=== PATIENT | female | born 1945 | race Caucasian/White ===

== ENCOUNTER 2025-03-15 15:46 | Inpatient (IN) ==
[2025-03-15 16:19] LABS: IMMATURE GRANULOCYTE # (AUTO) 0.1 (0.0-1.0); IMMATURE GRANULOCYTE % (AUTO) 0.4 % (0.0-5.0); RDW COEFFICIENT OF VARIATION 13.3 % (11.6-14.8)
[2025-03-15 16:33] LABS: CREATININE 0.81 mg/dL (0.60-1.30)
[2025-03-15 17:00] LABS: SARS COV-2 RNA RAPID NAAT NEGATIVE (NEGATIVE)
[2025-03-15 17:06] LABS: MOLECULAR FLU A NEGATIVE BY NAAT (NEGATIVE); MOLECULAR FLU B NEGATIVE BY NAAT (NEGATIVE); RSV MOLECULAR NEGATIVE BY NAAT (NEGATIVE)
--- NOTE | 2025-03-15 18:28 | DI ---
EXAM: CHEST RADIOGRAPH TECHNIQUE: Single frontal chest radiograph. HISTORY: Chest pain and shortness of breath. COMPARISON: 09/04/2024. FINDINGS: The lungs are clear. The heart is enlarged. There is calcification in the aorta consistent with atherosclerosis. There is no pleural effusion. There is no pneumothorax. IMPRESSION: 1. Cardiomegaly and atherosclerosis. 2. Otherwise unremarkable chest radiograph.
[2025-03-15 18:52] LABS: INR 2.53 SI (0.0-3.9)
[2025-03-15] MEDS ORDERED: DUONEB NEB PRN (19:25)
--- NOTE | 2025-03-15 19:30 | ED.PDOC ---
General HPI ED Provider: Dr. DARRICK XIONG DO Chief Complaint: Shortness of Air Stated Complaint: 80-year-old female brought by EMS from local skilled nursing. Called for concern for shortness of breath as the patient had audible breath sounds and hypoxic. EMS reports that upon their arrival they noted that her nasal cannula was hooked up to the humidifying bubbler as she is on oxygen therapy at nighttime, but the oxygen bubbler was not hooked up to the oxygen source on the wall. Upon hooking this back up, her oxygen levels stabilized. Upon arrival, the patient is unable to provide history due to history of dementia. Advanced directives include DNR with limited interventions. See advance directive sheet. Time Seen by Provider: 03/15/25 16:03 Information Source: Family, [facility] and EMT Nursing and Triage Documentation Reviewed and Agree: Yes Opioid Naive vs. Tolerant What is Opioid Naive?: *Opioid Naive implies the patient is not already taking opioids or not chronically receiving opioids on a daily basis. *PRN dosing is not "usually" associated with tolerance. *Patients are at higher risk of over-sedation and aspiration. What is Opioid Tolerant?: *Opioid Tolerance implies less than the expected response to an opioid. *Acquired tolerance is defined by the patient taking 60mg of oral morphine daily (or equianalgesic dose of another opioid) for 1 week or more. *Often associated with chronic pain. *May take more than usual dose to achieve desired pain control. Review of Systems Review Of Systems Constitutional: Reports No symptoms All Other Systems: Reviewed and Negative (With family and skilled nursing records) Physical Exam Physical Exam Appearance: Reports Well-appearing, No pain distress and Well-nourished Eyes: Reports EMILY and EOMI ENT: Reports Oropharynx normal Neck: Supple Respiratory: Reports Airway patent, Breath sounds clear, Breath sounds equal, Breath sounds diminished and Respirations nonlabored Cardiovascular: Reports RRR and Pulses normal GI/: Reports Soft and Nontender Musculoskeletal: Reports Normal strength and ROM intact Skin: Reports Warm, Dry and Normal color Neurological: Reports Sensation intact, Motor intact and Alert; Denies Oriented Psychiatric: Reports Affect appropriate and Mood appropriate Interpretation Radiology Interpretation Radiology Interpretation By: Radiologist Radiology Results: No acute changes Exam Interpreted: Portable CXR Re-Evaluation Re-Evaluation Additional Comments: 80-year-old female brought from the skilled nursing for evaluation of shortness of breath. She is stable on her prescribed oxygen for nighttime, and lungs clear to auscultation, but given her multiple comorbidities and limited history, laboratory workup obtained. This demonstrated pertinence particularly with regard to the elevated BNP although there is none to compare to. Although the patient appears stable on her supplemental oxygen in addition to chest x-ray that does not appear fluid overloaded, given limited history from the patient for subjective symptoms as well as the concern for proper use of oxygen supplementation at the nursing facility as it may not have been hooked up which would be highly dangerous to this patient, I discussed with the hospitalist service who is gracious to observe the patient during hospitalization. Physician Progress Note Physician Progress Note: All EKGs and plain film imaging independently reviewed and interpreted by me unless stated otherwise. CTs interpreted by radiology unless otherwise stated. All pediatric patients are accompanied by parent or legal guardian as primary historian and/or validate patient report unless otherwise stated. Course Course 03/15/25 16:13 03/15/25 16:13 Orders, Labs, Meds: Lab Review 03/15/25 03/15/25 16:13 16:15 WBC 14.09 H RBC 4.05 L Hgb 12.7 Hct 42.4 MCV 104.7 H MCH 31.4 H MCHC 30.0 L RDW Coeff of Lucy 13.3 Plt Count 135 L Immature Gran % (Auto) 0.4 Neut % (Auto) 80.1 H Lymph % (Auto) 8.4 L [place] % (Auto) 10.4 H Eos % (Auto) 0.6 Baso % (Auto) 0.1 Neut # (Auto) 11.3 H Lymph # (Auto) 1.2 [place] # (Auto) 1.5 Eos # (Auto) 0.1 Baso # (Auto) 0.0 Immature Gran # (Auto) 0.1 PT 24.7 H INR 2.53 APTT 34.1 Sodium 136.2 Potassium 3.84 Chloride 102.0 Carbon Dioxide 31.5 H Anion Gap 6.54 BUN 27.3 H Creatinine 0.81 Estimated GFR (MDRD) 68.00 BUN/Creatinine Ratio 33.70 Glucose 104.2 Calcium 8.23 L Magnesium 1.86 Total Bilirubin 1.17 AST 16.5 ALT 15.8 Alkaline Phosphatase 179.4 H Troponin I < 0.012 NT-Pro-B Natriuret Pep 38041 H Total Protein 7.08 Albumin 3.58 Globulin 3.50 Albumin/Globulin Ratio 1.02 Influ A Molecular Assay Negative by naat Influ B Molecular Assay Negative by naat RSV Antigen Negative by naat SARS CoV-2 RNA Rapid KATRIN Negative Orders Category Date Time Status ADMIT OBSERVATION [PLACE PATIENT OBSERVATION] .TO ADMISSION 03/15/25 19:23 Active MEDSURG (MONITORED BED) EKG-(ED & IP/OBS ONLY) Stat CARDIO 03/15/25 16:03 Completed NEBULIZER TREATMENT Routine CARDIO 03/15/25 19:27 Ordered OXYGEN Routine CARDIO 03/15/25 19:26 Ordered ACTIVITY .Early Mobilization for VTE Prevention CARE 03/15/25 19:25 Active INTAKE & OUTPUT Q8HR CARE 03/15/25 19:25 Active TELEMETRY MONITORING TELE CARE 03/15/25 19:23 Active VITAL SIGNS Q4HR CARE 03/15/25 19:26 Active WEIGH PATIENT 0600 CARE 03/15/25 19:25 Active CARDIAC DIET DIETARY 03/16/25 Breakfast Ordered FLUID RESTRICTION 1800 ML DIETARY 03/16/25 Breakfast Ordered CBC W/ AUTO DIFF DAILY@0600 LAB 03/16/25 06:00 Ordered CBC W/ AUTO DIFF DAILY@0600 LAB 03/17/25 06:00 Ordered CBC W/ AUTO DIFF Stat LAB 03/15/25 16:13 Completed CMP [COMPREHENSIVE METABOLIC PANEL] Stat LAB 03/15/25 16:13 Completed COMPREHENSIVE METABOLIC PANEL DAILY@0600 LAB 03/16/25 06:00 Ordered COMPREHENSIVE METABOLIC PANEL DAILY@0600 LAB 03/17/25 06:00 Ordered COVID [SARS COV-2 RNA RAPID KATRIN] Stat LAB 03/15/25 16:15 Completed ED PROBNP [NT-PROBNP(ED)] Stat LAB 03/15/25 16:13 Completed FLU A & B MOLECULAR [FLU A/B MOLECULAR] Stat LAB 03/15/25 16:15 Completed MAGNESIUM Stat LAB 03/15/25 16:13 Completed PT WITH INR Stat LAB 03/15/25 16:13 Completed PTT [PARTIAL THROMBOPLASTIN TIME] Stat LAB 03/15/25 16:13 Completed RESPIRATORY PANEL 2.1 (PCR) ONCE LAB 03/15/25 19:36 Uncollected RSV Stat LAB 03/15/25 16:15 Completed TROPONIN I Stat LAB 03/15/25 16:13 Completed Acetaminophen [Tylenol] Meds 03/15/25 19:25 Active 650 mg PO Q4H PRN Cefepime 2 gm/D5w [Maxipime 2 gm/50 ml D5w] Meds 03/15/25 19:24 Discontinued 2 gm in 50 ml IV ONCE Furosemide [Lasix] Meds 03/15/25 20:00 Active 20 mg IVP Q8H Ipratropium/Albuterol Neb [Duoneb] Meds 03/15/25 19:25 Active 3 ml NEB RTQ4H PRN CHEST, 1V AP ONLY Stat RADS 03/15/25 16:03 Completed Medications Generic Name Dose Route Start Last Admin Trade Name Freq PRN Reason Stop Dose Admin Acetaminophen 650 mg 03/15/25 19:25 Acetaminophen 325 Mg Tablet PO Q4H PRN Mild Pain Albuterol/Ipratropium 3 ml 03/15/25 19:25 Ipratropium/Albuterol Vial.Neb NEB RTQ4H PRN Wheezing Furosemide 20 mg 03/15/25 20:00 Furosemide Inj 20 Mg/2 Ml Vial IVP Q8H STALIN Discontinued Medications Generic Name Dose Route Start Last Admin Trade Name Freq PRN Reason Stop Dose Admin CEFEPIME 2 GM/D5W 2 gm in 50 mls @ 100 mls/hr 03/15/25 19:24 03/15/25 20:06 Maxipime 2 Gm/50 Ml D5w IV 03/15/25 19:53 100 mls/hr ONCE ONE Administration Vital Signs: Temp Pulse Resp BP Pulse Ox 03/15/25 15:50 97.7 F 85 20 124/72 91 L Discharge Plan Discharge Patient Disposition: PLACED OBSERVATION Discharge Problem: Hypoxia, Pneumonia, Chronic respiratory failure, CHF (congestive heart failure) Did you review [place] CHILD CARE C[place] for ALL controlled substances?: Not Applicable ED Provider: DARRICK XIONG Condition: Stable
[2025-03-15] MEDS: MAXIPIME 2 GM/50 ML D5W 2 GM/50 ML BAG IV ONE (20:06)
[2025-03-15 21:43] VITALS: BMI 31.1
[2025-03-15 22:07] LABS: BORDETELLA PARAPERTUSSIS (PCR) NOT DETECTED (NOT DETECT); BORDETELLA PERTUSSIS (PCR) NOT DETECTED (NOT DETECT); CHLAMYDIA PNEUMONIAE (PCR) NOT DETECTED (NOT DETECT); CORONAVIRUS 229E (PCR) NOT DETECTED (NOT DETECT); CORONAVIRUS HKU1 (PCR) NOT DETECTED (NOT DETECT); CORONAVIRUS NL63 (PCR) NOT DETECTED (NOT DETECT); CORONAVIRUS OC43 (PCR) NOT DETECTED (NOT DETECT); HUMAN METAPNEUMOVIRUS (PCR) NOT DETECTED (NOT DETECT); INFLUENZA A H1 (PCR) NOT DETECTED (NOT DETECT); INFLUENZA A H1-2009 (PCR) NOT DETECTED (NOT DETECT); INFLUENZA A H3 (PCR) NOT DETECTED (NOT DETECT); INFLUENZA B (PCR) NOT DETECTED (NOT DETECT); MYCOPLASMA PNEUMONIAE (PCR) NOT DETECTED (NOT DETECT); PARAINFLUENZA VIRUS 1 (PCR) NOT DETECTED (NOT DETECT); PARAINFLUENZA VIRUS 2 (PCR) NOT DETECTED (NOT DETECT); PARAINFLUENZA VIRUS 3 (PCR) NOT DETECTED (NOT DETECT); PARAINFLUENZA VIRUS 4 (PCR) NOT DETECTED (NOT DETECT); RESPIRATORY SYNCYTIAL V (PCR) NOT DETECTED (NOT DETECT); SARS_COV_2 (PCR) NOT DETECTED (NOT DETECT)
[2025-03-15] MEDS: COGENTIN PO SCH (22:15)
[2025-03-15] MEDS: RISPERDAL PO SCH (22:15)
[2025-03-15] MEDS: COREG PO SCH (22:15)
[2025-03-15] MEDS: COUMADIN PO SCH (22:16)
[2025-03-15] MEDS: LASIX IVP SCH (22:16)
[2025-03-15] MEDS: XALATAN RIGHTEYE SCH (22:17)
[2025-03-15 22:56] LABS: ADENOVIRUS (PCR) NOT DETECTED (NOT DETECT); HUMAN RHINOVIRUS/ENTEROV (PCR) DETECTED (NOT DETECT)
[2025-03-16 05:06] LABS: IMMATURE GRANULOCYTE # (AUTO) 0.0 (0.0-1.0); IMMATURE GRANULOCYTE % (AUTO) 0.4 % (0.0-5.0); RDW COEFFICIENT OF VARIATION 13.5 % (11.6-14.8)
[2025-03-16 05:26] LABS: CREATININE 0.73 mg/dL (0.60-1.30)
[2025-03-16] MEDS ORDERED: DUONEB NEB PRN ×2 (05:58→06:03)
[2025-03-16] MEDS: ZYRTEC PO SCH (08:20)
[2025-03-16] MEDS: K-DUR PO SCH (08:21)
--- NOTE | 2025-03-16 09:21 | PCM ---
Date of Service Date Seen by Provider: 03/16/25 Time Seen by Provider: 08:30 Admit Day/Time Admission Date: 03/15/25 Reason for Admission Chief Complaint: CHF. CHRONIC RESP FAILURE ; R/O PNA Hospital Provider Hospital Provider: CHEYENNE NEGRON, [facility] History of Present Illness History of Present Illness: 80 yo female with pmh of afib, systolic HF, schizophrenia, and COPD on PRN O2 presented to the ER from [facility] for low O2 sat after finding the patient's oxygen to be disconnected. O2 sat was found to be in the 80s. Placed back on 2L and was sating in upper 90s per EMS. Per nursing staff, patient had been lethargic and not acting right over the last couple days. She was treated for an URI and was not improving. Chest xray completed and negative at the facility. She was prescribed cefdinir that she had not started prednisone. Covid and flu negative in ER. Chest x-ray showing cardiomegaly. White count mildly elevated with slight left shift. No reported fever from SNF but did have cough. BNP found to be >10,000 with crackles to auscultation of the lungs present per ER provider and pitting edema to BLE. She was given IV cefepime. Admitted to med/surg observation. Patient is oriented to person only at baseline. Unable to provide HPI. Daughter at bedside states she has known CHF but unknown when she has ever had an echocardiogram done but knows she takes lasix. Case Discussed With Case Discussed With: Patient's case was discussed with the ER Physicians, Dr. Ortiz. 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 - Rheumatic tricuspid insufficiency (ICD-10) COPD (chronic obstructive pulmonary disease) J44.9 - Chronic obstructive pulmonary disease, unspecified (ICD-10) Atrial fibrillation I48.91 - Unspecified atrial fibrillation (ICD-10) Systolic heart failure I50.20 - Unspecified systolic (congestive) heart failure (ICD-10) Allergies Allergies Allergy/AdvReac Type Severity Reaction Status Date / Time No Known Allergies Allergy Unverified 03/15/25 20:36 Current Medications Home Medications Acetaminophen (Acetaminophen 325 Mg Tablet) 650 mg PO Q4H PRN PRN Reason: Mild Pain Albuterol/Ipratropium (Ipratropium/Albuterol Vial.Neb) 3 ml NEB RTQ4H PRN PRN Reason: Wheezing Albuterol/Ipratropium (Ipratropium/Albuterol Vial.Neb) 3 ml NEB RTQ4H PRN PRN Reason: Wheezing Benztropine Mesylate (Benztropine Mesylate 1 Mg Tablet) 1 mg PO 2XD [facility] Last Admin: 03/16/25 08:22 Dose: 1 mg Carvedilol (Carvedilol 3.125 Mg Tablet) 3.125 mg PO 2XD [facility] Last Admin: 03/16/25 08:22 Dose: 3.125 mg Cetirizine HCl (Cetirizine Hcl 10 Mg Tablet) 10 mg PO DAILY [facility] Last Admin: 03/16/25 08:20 Dose: 10 mg Furosemide (Furosemide Inj 20 Mg/2 Ml Vial) 20 mg IVP Q8H [facility] Last Admin: 03/16/25 04:34 Dose: 20 mg Latanoprost (Latanoprost 2.5 Ml Opth Darlin) 1 drop RIGHTEYE QPM [facility] Last Admin: 03/15/25 22:17 Dose: 1 drop Potassium Chloride (Potassium Chloride 20 Meq Tab) 10 meq PO DAILYWM2 [facility] Last Admin: 03/16/25 08:21 Dose: 10 meq Risperidone (Risperidone 1 Mg Tablet) 1 mg PO 2XD [facility] Last Admin: 03/16/25 08:21 Dose: 1 mg Warfarin Sodium (Warfarin Sodium 2 Mg Tablet) 2 mg PO MoWeFr@1700 [facility] Last Admin: 03/15/25 22:16 Dose: 2 mg Warfarin Sodium (Warfarin Sodium 2.5 Mg Tablet) 2.5 mg PO SuTuThSa@1700 [facility] acetaminophen 325 mg capsule 650 mg PO BID 03/15/25 [History Confirmed 03/15/25] azithromycin 250 mg tablet 250 mg PO DIRECTED 03/15/25 [History Confirmed 03/15/25] benztropine 1 mg tablet 1 mg PO 2XD 03/15/25 [History Confirmed 03/15/25] carvedilol 3.125 mg tablet 3.125 mg PO 2XD 03/15/25 [History Confirmed 03/15/25] cefdinir 300 mg capsule 300 mg PO 2XD 03/15/25 [History Confirmed 03/15/25] cetirizine 10 mg tablet 10 mg PO DAILY 03/15/25 [History Confirmed 03/15/25] cyanocobalamin (vitamin B-12) 1,000 mcg/mL injection solution 1,000 mcg IM MONTHLY 03/15/25 [History Confirmed 03/15/25] dextromethorphan-guaifenesin 20 mg-400 mg/5 mL oral liquid 20 ml PO Q4H PRN cough 03/15/25 [History Confirmed 03/15/25] furosemide 20 mg tablet 20 mg PO DAILY 03/15/25 [History Confirmed 03/15/25] ipratropium 0.5 mg-albuterol 3 mg (2.5 mg base)/3 mL nebulization soln 3 ml inhalation QID 03/15/25 [History Confirmed 03/15/25] latanoprost 0.005 % eye drops 1 drp RIGHTEYE QPM 03/15/25 [History Confirmed 03/15/25] potassium chloride 10 mEq tablet,extended release(part/cryst) 10 meq PO DAILY 03/15/25 [History Confirmed 03/15/25] prednisone 20 mg tablet 40 mg PO DAILY 03/15/25 [History Confirmed 03/15/25] risperidone 1 mg tablet 1 mg PO 2XD 03/15/25 [History Confirmed 03/15/25] warfarin 2 mg tablet 2 mg PO MOWEFR 03/15/25 [History Confirmed 03/15/25] warfarin 2.5 mg tablet 2.5 mg PO .tuthsasu 03/15/25 [History Confirmed 03/15/25] Opioid Naive vs. Tolerant Does Patient Take Opioids?: No Is Patient Opioid Naive?: Yes What is Opioid Naive?: *Opioid Naive implies the patient is not already taking opioids or not chronically receiving opioids on a daily basis. *PRN dosing is not "usually" associated with tolerance. *Patients are at higher risk of over-sedation and aspiration. Is Patient Opioid Tolerant?: No What is Opioid Tolerant?: *Opioid Tolerance implies less than the expected response to an opioid. *Acquired tolerance is defined by the patient taking 60mg of oral morphine daily (or equianalgesic dose of another opioid) for 1 week or more. *Often associated with chronic pain. *May take more than usual dose to achieve desired pain control. Physical examination Most Recent Vital Signs: Most Recent Vital Signs Temperature 96.7 F L 03/16/25 05:03 Temperature Source Temporal Artery Scan 03/16/25 05:03 Temperature Source Tympanic 03/15/25 15:50 Pulse Rate 80 03/16/25 05:03 Respiratory Rate 16 03/16/25 05:03 Blood Pressure 137/76 03/16/25 05:03 Blood Pressure Mean 96 03/16/25 05:03 Blood Pressure Left Arm 103/72 03/15/25 20:14 Blood Pressure Location Right Arm 03/16/25 05:03 Blood Pressure Position Supine 03/16/25 05:03 O2 Sat by Pulse Oximetry 94 L 03/16/25 05:47 Oxygen Delivery Method Nasal Cannula 03/16/25 08:15 Oxygen Flow Rate 2 03/16/25 08:15 Height 5 ft 03/15/25 20:14 Weight 72.4 kg 03/16/25 05:05 Telemetry Type Bedside Monitor 03/16/25 07:00 Telemetry Monitoring Continues 03/16/25 07:00 Irregular Telemetry Rate (Approximate) 70-80 BPM 03/15/25 20:38 Telemetry Heart Rate 92 03/16/25 07:00 Telemetry SPO2 92 L 03/16/25 07:00 EKG QRS Interval 0.08 03/16/25 07:00 Telemetry Strip Reading A-Fib 03/16/25 07:00 Appearance: Positive No Apparent Distress Skin: Positive Warm and Good Color HEENT: Positive Normocephalic and PERRLA Neck: Positive Supple and Midline Trachea Chest/Lungs: Positive Symmetrical With Equal Breath Sounds, Good Air Movement all 4 Lung Ivan and Other (crackles throughout lung ivan) Heart: Positive RRR and Pulses Normal GI/: Positive Soft, Nontender, Bowel Sounds Normal and No Distention Musculoskeletal: Positive Not Examined Extremities: Positive Edema (+2-3 pitting BLE) Neurological: Positive Sensation Intact, Motor intact, Reflexes Intact, Alert, Oriented (person) and Disorinted (place, time, situation) Labs This Visit Labs This Visit: Labs This Visit 03/15/25 03/15/25 03/15/25 16:13 16:15 21:55 WBC 14.09 H RBC 4.05 L Hgb 12.7 Hct 42.4 MCV 104.7 H MCH 31.4 H MCHC 30.0 L RDW Coeff of Lucy 13.3 Plt Count 135 L Immature Gran % (Auto) 0.4 Neut % (Auto) 80.1 H Lymph % (Auto) 8.4 L [place] % (Auto) 10.4 H Eos % (Auto) 0.6 Baso % (Auto) 0.1 Neut # (Auto) 11.3 H Lymph # (Auto) 1.2 [place] # (Auto) 1.5 Eos # (Auto) 0.1 Baso # (Auto) 0.0 Immature Gran # (Auto) 0.1 PT 24.7 H INR 2.53 APTT 34.1 Sodium 136.2 Potassium 3.84 Chloride 102.0 Carbon Dioxide 31.5 H Anion Gap 6.54 BUN 27.3 H Creatinine 0.81 Estimated GFR (MDRD) 68.00 BUN/Creatinine Ratio 33.70 Glucose 104.2 Calcium 8.23 L Magnesium 1.86 Total Bilirubin 1.17 AST 16.5 ALT 15.8 Alkaline Phosphatase 179.4 H Troponin I < 0.012 NT-Pro-B Natriuret Pep 19005 H Total Protein 7.08 Albumin 3.58 Globulin 3.50 Albumin/Globulin Ratio 1.02 Adenovirus (PCR) Not detected B. pertussis DNA (PCR) Not detected B.parapertussis DNA PCR Not detected C. pneumoniae DNA (PCR) Not detected Coronavirus OC43 (PCR) Not detected Coronavirus HKU1 (PCR) Not detected Coronavirus 229E (PCR) Not detected Coronavirus NL63 (PCR) Not detected Human Metapneumovir PCR Not detected Influenza A (H1) PCR Not detected Influ A (H1N1/09) PCR Not detected Influenza A (H3) PCR Not detected Influenza Type A (PCR) Not detected Influ A Molecular Assay Negative by naat Influenza B (RT-PCR) Not detected Influ B Molecular Assay Negative by naat M. pneumoniae (PCR) Not detected Parainfluenza 1 (PCR) Not detected Parainfluenza 2 (PCR) Not detected Parainfluenza 3 (PCR) Not detected Parainfluenza 4 (PCR) Not detected RSV Antigen Negative by naat RSV (PCR) Not detected Entero/Rhino (PCR) Detected H SARS-CoV-2 (PCR) Not detected SARS CoV-2 RNA Rapid KATRIN Negative 03/16/25 05:02 WBC 10.17 RBC 4.23 Hgb 13.2 Hct 44.1 MCV 104.3 H MCH 31.2 H MCHC 29.9 L RDW Coeff of Lucy 13.5 Plt Count 125 L Immature Gran % (Auto) 0.4 Neut % (Auto) 74.0 Lymph % (Auto) 14.5 [place] % (Auto) 9.2 Eos % (Auto) 1.8 Baso % (Auto) 0.1 Neut # (Auto) 7.5 H Lymph # (Auto) 1.5 [place] # (Auto) 0.9 Eos # (Auto) 0.2 Baso # (Auto) 0.0 Immature Gran # (Auto) 0.0 PT INR APTT Sodium 137.5 Potassium 3.62 Chloride 100.8 Carbon Dioxide 33.3 H Anion Gap 7.02 BUN 22.6 H Creatinine 0.73 Estimated GFR (MDRD) 77.00 BUN/Creatinine Ratio 30.95 Glucose 85.6 Calcium 8.50 Magnesium Total Bilirubin 1.61 H AST 15.4 ALT 15.2 Alkaline Phosphatase 172.8 H Troponin I NT-Pro-B Natriuret Pep Total Protein 7.29 Albumin 3.66 Globulin 3.63 Albumin/Globulin Ratio 1.00 Adenovirus (PCR) B. pertussis DNA (PCR) B.parapertussis DNA PCR C. pneumoniae DNA (PCR) Coronavirus OC43 (PCR) Coronavirus HKU1 (PCR) Coronavirus 229E (PCR) Coronavirus NL63 (PCR) Human Metapneumovir PCR Influenza A (H1) PCR Influ A (H1N1/09) PCR Influenza A (H3) PCR Influenza Type A (PCR) Influ A Molecular Assay Influenza B (RT-PCR) Influ B Molecular Assay M. pneumoniae (PCR) Parainfluenza 1 (PCR) Parainfluenza 2 (PCR) Parainfluenza 3 (PCR) Parainfluenza 4 (PCR) RSV Antigen RSV (PCR) Entero/Rhino (PCR) SARS-CoV-2 (PCR) SARS CoV-2 RNA Rapid KATRIN Imaging Imaging: EXAM: CHEST RADIOGRAPH TECHNIQUE: Single frontal chest radiograph. HISTORY: Chest pain and shortness of breath. COMPARISON: 09/04/2024. FINDINGS: The lungs are clear. The heart is enlarged. There is calcification in the aorta consistent with atherosclerosis. There is no pleural effusion. There is no pneumothorax. IMPRESSION: 1. Cardiomegaly and atherosclerosis. 2. Otherwise unremarkable chest radiograph. Review Statement Review Statement: I have independently reviewed and interpreted the labs/EKGs/imaging that were ordered by the ER provider. I have reviewed all outside records that are available currently in our EMR including imaging/notes/labs from previous visits. Plan Plan: 1. Acute Systolic Heart Failure Exacerbation - unsure when last echo was completed, suspect worsening condition, echo ordered for today, lasix 20 mg Q8H, I&O, daily weight 2. Chronic Respiratory Failure - wears 2L prn, suspect may need continuous, wean if able, duonebs Q4H prn 3. Rhinovirus - no fever present, supportive measures, will do steroids due to continued illness 4. Afib - chronic, not in RVR, continue home medications 5. Schizophrenia - continue home medications DVT Prophylaxis: Coumadin Time Spent: Greater than 80 minutes spent with patient, 50% of the time spent with this patient was devoted to counseling and coordination of care. Advanced Care Plannin minutes spent discussing advance care planning. Disposition: Admit to: Med/Surg Observation DNR Discussed Plan of Care with Dr. Orlando Draper. Medications Medication Orders: Medications Ordered Category Date Time Status Acetaminophen [Tylenol] Meds 03/15/25 19:25 Active 650 mg PO Q4H PRN Benztropine Mesylate [Cogentin] Meds 03/15/25 21:30 Active 1 mg PO 2XD Carvedilol [Coreg] Meds 03/15/25 21:30 Active 3.125 mg PO 2XD Cetirizine HCl [Zyrtec] Meds 03/16/25 09:00 Active 10 mg PO DAILY Furosemide [Lasix] Meds 03/15/25 20:00 Active 20 mg IVP Q8H Ipratropium/Albuterol Neb [Duoneb] Meds 03/16/25 05:58 Active 3 ml NEB RTQ4H PRN Ipratropium/Albuterol Neb [Duoneb] Meds 03/16/25 06:03 Active 3 ml NEB RTQ4H PRN Latanoprost [Xalatan] Meds 03/15/25 21:05 Active 1 drop RIGHTEYE QPM Potassium Chloride [K-Dur] Meds 03/16/25 07:30 Active 10 meq PO DAILYWM2 Risperidone [Risperdal] Meds 03/15/25 21:30 Active 1 mg PO 2XD Warfarin Sodium [Coumadin] Meds 03/15/25 21:30 Active 2 mg PO MoWeFr@1700 Warfarin Sodium [Coumadin] Meds 03/16/25 17:00 Active 2.5 mg PO SuTuThSa@1700
[2025-03-16] MEDS: SOLU-MEDROL 40 MG IVP SCH (12:10)
[2025-03-16] MEDS: COUMADIN PO SCH (17:13)
[2025-03-17 05:14] LABS: IMMATURE GRANULOCYTE # (AUTO) 0.0 (0.0-1.0); IMMATURE GRANULOCYTE % (AUTO) 0.4 % (0.0-5.0); RDW COEFFICIENT OF VARIATION 13.1 % (11.6-14.8)
[2025-03-17 05:40] LABS: CREATININE 0.75 mg/dL (0.60-1.30)
[2025-03-17] MEDS: MICRO-K CAP PO SCH (09:32)
[2025-03-17] MEDS: TYLENOL PO PRN (09:59)
--- NOTE | 2025-03-17 11:32 | PCM.PROG ---
Date/Time Seen Date Seen by Provider: 03/17/25 Time Seen by Provider: 08:30 Provider [facility]NE NEGRON[facility] Chief Complaint Chief Complaint: CHF. CHRONIC RESP FAILURE ; R/O PNA Subjective Subjective: O2 sat drops to 80s when oxygen is taken off. States she just doesn't feel well today Objective Appearance: Positive No Apparent Distress Chest/Lungs: Positive Symmetrical With Equal Breath Sounds and Clear to Auscultation Bilaterally (diminished) Heart: Positive Pulses Normal and Murmur GI/: Positive Soft, Nontender and Bowel Sounds Normal Musculoskeletal: Positive Not Examined Neurological: Positive Sensation Intact, Motor intact, Reflexes Intact, Alert, Oriented (person), Disorinted (place time situation) and Other (generalized weakness) Additional Findings: +2-3 pitting edema BLE Vital Signs Vital Signs: Vital Signs: Last 24 Hours 03/16/25 12:00 03/16/25 12:53 03/16/25 13:00 Temperature Temperature Source Pulse Rate Respiratory Rate Blood Pressure Blood Pressure Mean Blood Pressure Location Blood Pressure Position O2 Sat by Pulse Oximetry Oxygen Delivery Method Nasal Cannula Nasal Cannula Oxygen Flow Rate Weight Telemetry Type Bedside Monitor Telemetry Monitoring Continues Irregular Telemetry Rate (Approximate) Telemetry Heart Rate 75 Telemetry SPO2 95 EKG QRS Interval 0.08 Telemetry Strip Reading A-Fib 03/16/25 14:00 03/16/25 14:00 03/16/25 14:00 Temperature Temperature Source Pulse Rate 73 Respiratory Rate 18 Blood Pressure 125/63 Blood Pressure Mean 83 Blood Pressure Location Blood Pressure Position Supine O2 Sat by Pulse Oximetry 92 L 94 L Oxygen Delivery Method Nasal Cannula Nasal Cannula Nasal Cannula Oxygen Flow Rate 2 2 Weight Telemetry Type Telemetry Monitoring Irregular Telemetry Rate (Approximate) Telemetry Heart Rate Telemetry SPO2 EKG QRS Interval Telemetry Strip Reading 03/16/25 15:00 03/16/25 16:00 03/16/25 17:00 Temperature Temperature Source Pulse Rate Respiratory Rate Blood Pressure Blood Pressure Mean Blood Pressure Location Blood Pressure Position O2 Sat by Pulse Oximetry Oxygen Delivery Method Nasal Cannula Nasal Cannula Nasal Cannula Oxygen Flow Rate Weight Telemetry Type Telemetry Monitoring Irregular Telemetry Rate (Approximate) Telemetry Heart Rate Telemetry SPO2 EKG QRS Interval Telemetry Strip Reading 03/16/25 17:57 03/16/25 17:57 03/16/25 18:55 Temperature 97.2 F L Temperature Source Temporal Artery Scan Pulse Rate 96 Respiratory Rate 16 Blood Pressure 135/66 Blood Pressure Mean 89 Blood Pressure Location Left Arm Blood Pressure Position Supine O2 Sat by Pulse Oximetry 96 Oxygen Delivery Method Nasal Cannula Nasal Cannula Nasal Cannula Oxygen Flow Rate 2 Weight Telemetry Type Telemetry Monitoring Irregular Telemetry Rate (Approximate) Telemetry Heart Rate Telemetry SPO2 EKG QRS Interval Telemetry Strip Reading 03/16/25 19:00 03/16/25 20:00 03/16/25 20:00 Temperature Temperature Source Pulse Rate Respiratory Rate 18 Blood Pressure Blood Pressure Mean Blood Pressure Location Blood Pressure Position O2 Sat by Pulse Oximetry Oxygen Delivery Method Nasal Cannula Nasal Cannula Oxygen Flow Rate 2 Weight Telemetry Type Bedside Monitor Telemetry Monitoring Continues Irregular Telemetry Rate (Approximate) 80-90 BPM Telemetry Heart Rate Telemetry SPO2 EKG QRS Interval 0.07 Telemetry Strip Reading atrial fib 03/16/25 20:00 03/16/25 21:00 03/16/25 21:31 Temperature 96.2 F L Temperature Source Tympanic Pulse Rate 87 Respiratory Rate 18 Blood Pressure 116/56 L Blood Pressure Mean 76 Blood Pressure Location Right Arm Blood Pressure Position Supine O2 Sat by Pulse Oximetry 93 L 94 L Oxygen Delivery Method Nasal Cannula Nasal Cannula Nasal Cannula Oxygen Flow Rate 2 2 Weight Telemetry Type Telemetry Monitoring Irregular Telemetry Rate (Approximate) Telemetry Heart Rate Telemetry SPO2 EKG QRS Interval Telemetry Strip Reading 03/16/25 21:48 03/16/25 23:00 03/17/25 00:00 Temperature Temperature Source Pulse Rate Respiratory Rate Blood Pressure Blood Pressure Mean Blood Pressure Location Blood Pressure Position O2 Sat by Pulse Oximetry Oxygen Delivery Method Nasal Cannula Nasal Cannula Nasal Cannula Oxygen Flow Rate Weight Telemetry Type Telemetry Monitoring Irregular Telemetry Rate (Approximate) Telemetry Heart Rate Telemetry SPO2 EKG QRS Interval Telemetry Strip Reading 03/17/25 01:00 03/17/25 01:00 03/17/25 01:58 Temperature Temperature Source Pulse Rate Respiratory Rate Blood Pressure Blood Pressure Mean Blood Pressure Location Blood Pressure Position O2 Sat by Pulse Oximetry Oxygen Delivery Method Nasal Cannula Nasal Cannula Oxygen Flow Rate Weight Telemetry Type Bedside Monitor Telemetry Monitoring Continues Irregular Telemetry Rate (Approximate) 80-90 BPM Telemetry Heart Rate Telemetry SPO2 92 L EKG QRS Interval 0.07 Telemetry Strip Reading AFIB 03/17/25 01:58 03/17/25 03:00 03/17/25 04:00 Temperature 97.0 F L Temperature Source Tympanic Pulse Rate 82 Respiratory Rate 18 Blood Pressure 108/54 L Blood Pressure Mean 72 Blood Pressure Location Right Arm Blood Pressure Position Supine O2 Sat by Pulse Oximetry 94 L Oxygen Delivery Method Nasal Cannula Nasal Cannula Nasal Cannula Oxygen Flow Rate 2 Weight Telemetry Type Telemetry Monitoring Irregular Telemetry Rate (Approximate) Telemetry Heart Rate Telemetry SPO2 EKG QRS Interval Telemetry Strip Reading 03/17/25 04:00 03/17/25 05:00 03/17/25 05:38 Temperature 97.1 F L Temperature Source Tympanic Pulse Rate 71 Respiratory Rate 16 Blood Pressure 137/67 Blood Pressure Mean 90 Blood Pressure Location Left Arm Blood Pressure Position Supine O2 Sat by Pulse Oximetry 98 Oxygen Delivery Method Nasal Cannula Nasal Cannula Nasal Cannula Oxygen Flow Rate 2 Weight Telemetry Type Telemetry Monitoring Irregular Telemetry Rate (Approximate) Telemetry Heart Rate Telemetry SPO2 EKG QRS Interval Telemetry Strip Reading 03/17/25 05:50 03/17/25 05:57 03/17/25 05:59 Temperature Temperature Source Pulse Rate Respiratory Rate Blood Pressure Blood Pressure Mean Blood Pressure Location Blood Pressure Position O2 Sat by Pulse Oximetry Oxygen Delivery Method Nasal Cannula Nasal Cannula Oxygen Flow Rate Weight 71.6 kg Telemetry Type Telemetry Monitoring Irregular Telemetry Rate (Approximate) Telemetry Heart Rate Telemetry SPO2 EKG QRS Interval Telemetry Strip Reading 03/17/25 07:00 03/17/25 07:00 03/17/25 07:46 Temperature Temperature Source Pulse Rate Respiratory Rate Blood Pressure Blood Pressure Mean Blood Pressure Location Blood Pressure Position O2 Sat by Pulse Oximetry Oxygen Delivery Method Nasal Cannula Nasal Cannula Oxygen Flow Rate Weight Telemetry Type Remote Telemetry Telemetry Monitoring Continues Irregular Telemetry Rate (Approximate) 60-70 BPM Telemetry Heart Rate Telemetry SPO2 96 EKG QRS Interval 0.07 Telemetry Strip Reading afib 03/17/25 08:00 03/17/25 08:34 03/17/25 09:25 Temperature Temperature Source Pulse Rate Respiratory Rate Blood Pressure Blood Pressure Mean Blood Pressure Location Blood Pressure Position O2 Sat by Pulse Oximetry Oxygen Delivery Method Nasal Cannula Nasal Cannula Nasal Cannula Oxygen Flow Rate 2 Weight Telemetry Type Telemetry Monitoring Irregular Telemetry Rate (Approximate) Telemetry Heart Rate Telemetry SPO2 EKG QRS Interval Telemetry Strip Reading 03/17/25 10:00 03/17/25 11:00 Temperature 97.2 F L Temperature Source Temporal Artery Scan Pulse Rate 90 Respiratory Rate 15 Blood Pressure 119/62 Blood Pressure Mean 81 Blood Pressure Location Right Arm Blood Pressure Position Supine O2 Sat by Pulse Oximetry 98 Oxygen Delivery Method Nasal Cannula Nasal Cannula Oxygen Flow Rate 2 Weight Telemetry Type Telemetry Monitoring Irregular Telemetry Rate (Approximate) Telemetry Heart Rate Telemetry SPO2 EKG QRS Interval Telemetry Strip Reading Lab Results Lab Results: Lab Results: Last 24 Hours 03/17/25 05:07 WBC 9.63 RBC 4.10 L Hgb 12.7 Hct 42.2 MCV 102.9 H MCH 31.0 MCHC 30.1 L RDW Coeff of Lucy 13.1 Plt Count 132 L Immature Gran % (Auto) 0.4 Neut % (Auto) 92.4 H Lymph % (Auto) 5.4 L [place] % (Auto) 1.8 Eos % (Auto) 0.0 Baso % (Auto) 0.0 Neut # (Auto) 8.9 H Lymph # (Auto) 0.5 L [place] # (Auto) 0.2 L Eos # (Auto) 0.0 Baso # (Auto) 0.0 Immature Gran # (Auto) 0.0 Sodium 135.8 Potassium 3.82 Chloride 97.3 L Carbon Dioxide 36.4 H Anion Gap 5.92 BUN 28.4 H Creatinine 0.75 Estimated GFR (MDRD) 74.00 BUN/Creatinine Ratio 37.86 Glucose 151.5 H Calcium 8.33 L Total Bilirubin 1.15 AST 16.5 ALT 16.5 Alkaline Phosphatase 171.9 H Total Protein 6.88 Albumin 3.42 L Globulin 3.46 Albumin/Globulin Ratio 0.98 Additional Comments Additional Comments: I have independently reviewed and interpreted the labs/EKGs/imaging ordered during this hospital stay. I have reviewed outside records that are available in our EMR that pertain to medical stay including imaging/notes/labs from previous visits. Active Medications Active Medications: Medications Generic Name Dose Route Start Last Admin Trade Name Freq PRN Reason Stop Dose Admin Acetaminophen 650 mg 03/15/25 19:25 03/17/25 09:59 Acetaminophen 325 Mg Tablet PO 650 mg Q4H PRN Administration Mild Pain Albuterol/Ipratropium 3 ml 03/16/25 05:58 Ipratropium/Albuterol Vial.Neb NEB RTQ4H PRN Wheezing Benztropine Mesylate 1 mg 03/15/25 21:30 03/17/25 09:28 Benztropine Mesylate 1 Mg Tablet PO 1 mg 2XD STALIN Administration Carvedilol 3.125 mg 03/17/25 17:00 Carvedilol 3.125 Mg Tablet PO [id number] STALIN Cetirizine HCl 10 mg 03/16/25 09:00 03/17/25 09:32 Cetirizine Hcl 10 Mg Tablet PO 10 mg DAILY STALIN Administration Furosemide 20 mg 03/15/25 20:00 03/17/25 05:29 Furosemide Inj 20 Mg/2 Ml Vial IVP 20 mg Q8H STALIN Administration Latanoprost 1 drop 03/15/25 21:05 03/16/25 17:06 Latanoprost 2.5 Ml Opth Darlin RIGHTEYE 1 drop QPM STALIN Administration Methylprednisolone Sodium Succinate 40 mg 03/16/25 13:00 03/17/25 05:29 Methylprednisolone Sod Succ/Pf 40 Mg/Ml Vial IVP 40 mg Q8HR STALIN Administration Potassium Chloride 10 meq 03/17/25 09:30 03/17/25 09:32 Potassium Chloride 10 Meq Capsule.Er PO 10 meq [id number] STALIN Administration Risperidone 1 mg 03/15/25 21:30 03/17/25 09:29 Risperidone 1 Mg Tablet PO 1 mg 2XD STALIN Administration Sodium Chloride 1 syr 03/17/25 05:30 03/17/25 05:32 0.9% Sodium Chloride 10 Ml Disp.Syrin IVF 1 syr Q8HR STALIN Administration Warfarin Sodium 2 mg 03/15/25 21:30 03/15/25 22:16 Warfarin Sodium 2 Mg Tablet PO 2 mg [id number] STALIN Administration Warfarin Sodium 2.5 mg 03/16/25 17:00 03/16/25 17:13 Warfarin Sodium 2.5 Mg Tablet PO 2.5 mg [id number] STALIN Administration Plan Plan: 1. Acute Diastolic Heart Failure Exacerbation - echo completed and showed grade 3 diastolic dysfunction, EF 65-70%, moderate MR and moderate pulmonary hypertension, sats still dropping, down 1 kg thus far, continue lasix 20 mg Q8H, I&O, daily weight, will start jardiance for HF GDT 2. Chronic Respiratory Failure - wears 2L prn, suspect may need continuous, wean if able, duonebs Q4H prn 3. Rhinovirus - no fever present, supportive measures, will do steroids due to continued illness 4. Afib - chronic, not in RVR, continue home medications 5. Schizophrenia - continue home medications DVT Prophylaxis: Coumadin Review Statement Review Statement: I have personally discussed and reviewed the patient's visit/currently labs/imaging/decision making with Dr. Draper, my supervising attending. Greater that 50 minutes spent with patient, 50% of the time spent with this patient was devoted to counseling and coordination of care.
[2025-03-17] MEDS: COREG PO SCH (17:42)
[2025-03-18 05:25] LABS: IMMATURE GRANULOCYTE # (AUTO) 0.1 (0.0-1.0); IMMATURE GRANULOCYTE % (AUTO) 0.6 % (0.0-5.0); RDW COEFFICIENT OF VARIATION 13.1 % (11.6-14.8)
[2025-03-18 05:45] LABS: CREATININE 0.78 mg/dL (0.60-1.30)
[2025-03-18 09:42] VITALS: BP 116/57; PULSE 75; RESP 19; TEMP 97.4
[2025-03-18] MEDS: K-DUR PO ONE (09:44)
--- NOTE | 2025-03-18 09:48 | DCSUM ---
Admission Date Admission Date: 03/15/25 Discharge Date Discharge Date: 03/18/25 Admission Diagnosis Admission Diagnosis: 1. Acute Systolic Heart Failure Exacerbation 2. Chronic Respiratory Failure 3. Rhinovirus Discharge Diagnosis Discharge Diagnosis: 1. Acute Diastolic Heart Failure Exacerbation - Improved, echo completed and showed grade 3 diastolic dysfunction, EF 65-70%, moderate MR and moderate pulmonary hypertension, started jardiance for GDMT 2. Chronic Respiratory Failure - continued to require 2L via NC continuous 3. Rhinovirus - no fever present, supportive measures, rx for steroids 4. Afib - chronic, stable 5. Schizophrenia - stable Hospital Provider Hospital Provider: CHEYENNE NEGRON, [facility] Summary of History and Physical Summary of History and Physical: 80 yo female with pmh of afib, systolic HF, schizophrenia, and COPD on PRN O2 presented to the ER from [facility] for low O2 sat after finding the patient's oxygen to be disconnected. O2 sat was found to be in the 80s. Placed back on 2L and was sating in upper 90s per EMS. Per nursing staff, patient had been lethargic and not acting right over the last couple days. She was treated for an URI and was not improving. Chest xray completed and negative at the facility. She was prescribed cefdinir that she had not started prednisone. Covid and flu negative in ER. Chest x-ray showing cardiomegaly. White count mildly elevated with slight left shift. No reported fever from SNF but did have cough. BNP found to be >10,000 with crackles to auscultation of the lungs present per ER provider and pitting edema to BLE. She was given IV cefepime. Admitted to med/surg observation. Patient is oriented to person only at baseline. Unable to provide HPI. Daughter at bedside states she has known CHF but unknown when she has ever had an echocardiogram done but knows she takes lasix. Hospital Course Subjective: Patient was treated for diastolic heart failure exacerbation with lasix 20 mg Q8H. Diuresed well. Edema and SOB much improved. Started jardiance for HF GDMT. Increased home lasix dose to 40 mg po daily. Echo completed and showed grade 3 diastolic dysfunction, EF 65-70%, moderate MR and moderate pulmonary hypertension. O2 sat continued to drop every time oxygen was removed. Per daughter patient is supposed to be on continuous oxygen but was only on it prn at [facility]. Recommend continuous O2 at 2lpm. Found to have rhinovirus. Gave steroids during stay and improved mucus production. Rx sent for 3 more days. No further changes to home medications unless otherwise noted. Follow-up with PCP. Appearance: Pleasant, No Apparent Distress and Alert HEENT: MMM, Supple and No JVD CVS: No Murmur Abdomen: Soft, Non-Tender and No Distention Respiratory: No Dyspnea Extremities: Other (trace edema ble) Vital Signs: Most Recent Vital Signs Temperature 97.4 F L 03/18/25 09:41 Temperature Source Temporal Artery Scan 03/18/25 09:41 Temperature Source Tympanic 03/15/25 15:50 Pulse Rate 75 03/18/25 09:41 Respiratory Rate 19 03/18/25 09:41 Blood Pressure 116/57 L 03/18/25 09:41 Blood Pressure Mean 76 03/18/25 09:41 Blood Pressure Left Arm 103/72 03/15/25 20:14 Blood Pressure Location Right Arm 03/18/25 09:41 Blood Pressure Position Supine 03/18/25 09:41 O2 Sat by Pulse Oximetry 97 03/18/25 09:41 Oxygen Delivery Method Nasal Cannula 03/18/25 09:41 Oxygen Flow Rate 2 03/18/25 05:19 Height 5 ft 03/15/25 20:14 Weight 70.7 kg 03/18/25 05:10 Telemetry Type Bedside Monitor 03/18/25 01:00 Telemetry Monitoring Continues 03/18/25 01:00 Irregular Telemetry Rate (Approximate) 60-70 BPM 03/18/25 01:00 Telemetry Heart Rate 95 03/17/25 13:00 Telemetry SPO2 96 03/17/25 07:00 EKG QRS Interval 0.05 L 03/18/25 01:00 Telemetry Strip Reading A-FIB 03/18/25 01:00 Imaging: EXAM: CHEST RADIOGRAPH TECHNIQUE: Single frontal chest radiograph. HISTORY: Chest pain and shortness of breath. COMPARISON: 09/04/2024. FINDINGS: The lungs are clear. The heart is enlarged. There is calcification in the aorta consistent with atherosclerosis. There is no pleural effusion. There is no pneumothorax. IMPRESSION: 1. Cardiomegaly and atherosclerosis. 2. Otherwise unremarkable chest radiograph. Lab Results Last 24 Hours: 03/18/25 05:19 WBC 15.27 H D RBC 4.14 L Hgb 12.9 Hct 42.9 MCV 103.6 H MCH 31.2 H MCHC 30.1 L RDW Coeff of Lucy 13.1 Plt Count 139 L Immature Gran % (Auto) 0.6 Neut % (Auto) 92.8 H Lymph % (Auto) 3.9 L [place] % (Auto) 2.6 Eos % (Auto) 0.0 Baso % (Auto) 0.1 Neut # (Auto) 14.2 H Lymph # (Auto) 0.6 [place] # (Auto) 0.4 Eos # (Auto) 0.0 Baso # (Auto) 0.0 Immature Gran # (Auto) 0.1 Sodium 139.4 Potassium 3.34 L Chloride 97.4 L Carbon Dioxide 36.5 H Anion Gap 8.84 BUN 30.1 H Creatinine 0.78 Estimated GFR (MDRD) 71.00 BUN/Creatinine Ratio 38.58 Glucose 136.6 H Calcium 8.30 L Total Bilirubin 0.82 AST 18.4 ALT 15.8 Alkaline Phosphatase 166.6 H Total Protein 6.76 Albumin 3.36 L Globulin 3.40 Albumin/Globulin Ratio 0.98 Discharge Instructions Discharge Planning: Discharge Planning > 40 minutes If patient is discharged with left ventricular systolic dysfunction: no Discharged with a beta dinora? [] If no, why not? [] Discharged with an helen/arb? [] If no, why not? [] Discharge Medications: Medications at Discharge (Home Meds & RX) acetaminophen 325 mg capsule 650 mg PO BID 03/15/25 benztropine 1 mg tablet 1 mg PO 2XD 03/15/25 carvedilol 3.125 mg tablet 3.125 mg PO 2XD 03/15/25 cetirizine 10 mg tablet 10 mg PO DAILY 03/15/25 cyanocobalamin (vitamin B-12) 1,000 mcg/mL injection solution 1,000 mcg IM MONTHLY 03/15/25 dextromethorphan-guaifenesin 20 mg-400 mg/5 mL oral liquid 20 ml PO Q4H PRN cough 03/15/25 ipratropium 0.5 mg-albuterol 3 mg (2.5 mg base)/3 mL nebulization soln 3 ml inhalation QID 03/15/25 latanoprost 0.005 % eye drops 1 drp RIGHTEYE QPM 03/15/25 potassium chloride 10 mEq tablet,extended release(part/cryst) 10 meq PO DAILY 03/15/25 risperidone 1 mg tablet 1 mg PO 2XD 03/15/25 warfarin 2 mg tablet 2 mg PO MOWEFR 03/15/25 warfarin 2.5 mg tablet 2.5 mg PO .tuthsasu 03/15/25 empagliflozin 10 mg tablet (Jardiance) 10 mg PO DAILY #30 tabs 03/18/25 furosemide 40 mg tablet (Lasix) 40 mg PO DAILY #30 tabs 03/18/25 prednisone 10 mg tablet 10 mg PO DAILY #3 tabs 03/18/25 Discharge Plan Discharge Discharge Orders: Discharge Patient (ONCE); Ordered 03/18/25 Ordered By: KARLOS FOFANA Activity Restrictions/Additional Instructions: Diagnosis: Diastolic Heart Failure, Chronic Respiratory Failure in setting of COPD and CHF, Rhinovirus Diet: Low salt, restrict fluids to 2L per day Activity as tolerated. Oxygen: continuous 2L Medications: * Lasix 40 mg daily * Prednisone 10 mg daily x 3 more days * Jardiance 10 mg daily - for heart preservation Instructions: Heart Failure (GEN), Fluid Restriction (GEN), Chronic Respiratory Failure (GEN) Patient Disposition: TRANSFER SNF Prescriptions: New prednisone 10 mg tablet 10 mg PO DAILY Qty: 3 0RF Jardiance 10 mg tablet 10 mg PO DAILY Qty: 30 0RF Continued ipratropium-albuterol 0.5 mg-3 mg(2.5 mg base)/3 mL solution for nebulization 3 ml INHALATION QID Patient Comments: [NO ORIGINAL SIG] carvedilol 3.125 mg tablet 3.125 mg PO 2XD cyanocobalamin (vitamin B-12) 1,000 mcg/mL solution 1,000 mcg IM MONTHLY Patient Comments: [NO ORIGINAL SIG] benztropine 1 mg tablet 1 mg PO 2XD risperidone 1 mg tablet 1 mg PO 2XD potassium chloride 10 mEq tablet,ER particles/crystals 10 meq PO DAILY warfarin 2.5 mg tablet 2.5 mg PO .tuthsasu cetirizine 10 mg tablet 10 mg PO DAILY warfarin 2 mg tablet 2 mg PO MOWEFR acetaminophen 325 mg capsule 650 mg PO BID latanoprost 0.005 % drops 1 drp RIGHTEYE QPM dextromethorphan-guaifenesin 20-400 mg/5 mL liquid 20 ml PO Q4H PRN (Reason: cough) Changed furosemide [Lasix] 40 mg tablet 40 mg PO DAILY Qty: 30 0RF Discontinued azithromycin 250 mg tablet 250 mg PO DIRECTED cefdinir 300 mg capsule 300 mg PO 2XD prednisone 20 mg tablet 40 mg PO DAILY Patient Comments: HAS NOT BEEN STARTED; TO TAKE FOR 5 DAYS Did you review [place] NIGHT ASSISTANT for ALL controlled substances?: No Discussed opioids are addictive and Narcan is available by prescription or from pharmacy.: No Condition: Stable
[2025-03-18] MEDS: LASIX TAB PO ONE (10:47)
[2025-03-18] MEDS: MIRALAX PO ONE (11:24)
== END 2025-03-18 11:35 | DRG 292 ==
LOC: SCU 15:46 → ED 15:46 → SCU 20:14
PROVIDERS: ADMIT Hospitalist; ATTEND Nurse Practitioner Family